=== PATIENT | male | born 1965 | race Caucasian/White ===

== ENCOUNTER 2017-02-06 12:06 | Emergency (ER) | payer SELFPAY ==
[~2017-02-06] VITALS: Ht 177.8 cm; Wt 102.3 kg
[~2017-02-06 12:06] MED LIST: ALBU8I INH; AZIT250T43 PO; LISI-357 PO; POTA-243 PO
[2017-02-06 12:07] VITALS: BP 177/100; PULSE 81; RESP 18; TEMP 98.5; O2SAT 97
--- NOTE | 2017-02-06 13:56 | PD ---
HPI Chief Complaint: Eye Problems/Injury Time Seen by Provider: 13:27 Travel History International Travel<30 days: No Contact w/Intl Traveler<30days: No Traveled to known affect area: No History of Present Illness HPI 51-year-old male presents to the emergency room for evaluation of right eye redness after injuring it just prior to arrival. Patient was standing about 3 feet up on a ladder when he lost his balance and fell to the right. States he may have hit his right eye on the counter on the way down. Reports mild pain. Denies foreign body sensation, changes in visual acuity, drainage, or tearing. Denies photophobia. Denies any other injuries. States at first he had some mild right shoulder and right ankle pain but this has subsided. He has not taken anything for symptoms. 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 PFSH Past Medical History Heart Rhythm Problems: No Cardiac Catheterization: No Cardiovascular Problems: Yes (HTN) High Cholesterol: No Congestive Heart Failure: No Diabetes: No Diminished Hearing: No Hypertension: Yes (off meds) Kidney Stones: Yes Past Surgical History Appendectomy: Yes Coronary Artery Bypass Graft: No Social History Alcohol Use: Yes (2-3 BEERS A DAY) Tobacco Use: Yes (1PK PER DAY) Substance Use: No Allergies-Medications (Allergen,Severity, Reaction): Coded Allergies: No Known Allergies (Verified , 08/05/14) Reported Meds & Prescriptions Reported Meds & Active Scripts Active Erythromycin Opth Oint 5 Mg/Gm Oint 1 Applic RIGHT EYE QID K-Dur (Potassium Chloride) 10 Meq Tabcr 20 Meq PO DAILY Lisinopril 5 mg (Lisinopril) 5 Mg Tab 1 Tab PO DAILY Ventolin Hfa (Albuterol Sulfate) 8 Gm Aero 2 Puff INH Q6 PRN * SHAKE WELL BEFORE USE * Azithromycin 250 Mg Tab 250 Mg PO DAILY 1 tablet daily for 4 days starting tomorrow 08/07/14 Review of Systems Except as stated in HPI: all other systems reviewed are Neg Physical Exam Narrative GENERAL: Well-nourished, well-developed male in no acute distress. Afebrile. Ambulatory. SKIN: Focused skin assessment warm/dry. HEAD: Normocephalic. EYES: PERRL, EOMI without pain. No photophobia. Moderate right eye injection. No scleral icterus. Right eye is 20/20. Left eye is 20/25. Fluorescein staining reveals no corneal abrasion, ulceration, or foreign body. Negative Oswald sign. NECK: Supple, trachea midline. No JVD or lymphadenopathy. CARDIOVASCULAR: Regular rate and rhythm without murmurs, gallops, or rubs. RESPIRATORY: Breath sounds equal bilaterally. No accessory muscle use. MSK: Full range of motion of right upper extremity. Full range motion ankle. Data Data Last Documented VS Vital Signs Date Time Temp Pulse Resp B/P (MAP) Pulse Ox O2 Delivery O2 Flow Rate FiO2 02/06/17 14:17 02/06/17 12:07 98.5 81 18 97 Room Air Orders Orders Ed Discharge Order (02/06/17 13:57) Mandatory Outpatient Referral (02/06/17 14:16) [facility] Medical Decision Making Medical Screen Exam Complete: Yes Emergency Medical Condition: Yes Medical Record Reviewed: Yes Differential Diagnosis Laceration, corneal abrasion, subconjunctival hemorrhage Narrative Course 51-year-old male presents to the emergency room for evaluation of a superficial laceration to his right eyeball that occurred just prior to arrival. Patient fell 3 feet off a ladder and struck his eye on a counter. He denies any significant pain. Physical exam reveals a flap over the right lateral conjunctiva. Negative Oswald sign. EOMI without pain. Visual acuity 20/20 in the affected eye. Fluorescein staining reveals no corneal involvement. I spoke to the table tender on-call, Dr. Lockett, who recommends erythromycin eye ointment and follow-up in her office this week for dilated eye exam. Patient will call today for an appointment. Mandatory outpatient referral placed. Patient was discharged with prescription and told to follow up as instructed or return for worsening symptoms. He understands and agrees to plan. Diagnosis Primary Impression: Laceration of right conjunctiva Qualified Codes: S05.31XA - Ocular laceration without prolapse or loss of intraocular tissue, right eye, initial encounter Referrals: Khushi Lockett MD Additional Instructions: Apply ointment as directed. Follow-up with table tender. Call for an appointment. Return to the emergency room for worsening symptoms. Scripts Erythromycin Opth Oint (Erythromycin Opth Oint) 5 Mg/Gm Oint 1 APPLIC RIGHT EYE QID for Infection, #1 TUBE 0 Refills Prov: Janae Ball DO 02/06/17 Disposition: 01 DISCHARGE HOME Condition: Stable Tesha Garcia Feb 06, 2017 13:56
[2017-02-06] MEDS ORDERED: ERYTOIN10 RIGHT EYE (13:57)
[2017-02-09] MEDS ORDERED: ERYTOIN10 RIGHT EYE (08:34)
[2017-02-09] MEDS ORDERED: LISI-519 PO (08:34)
== END 2017-02-06 14:19 | disposition home or self-care (01) ==
LOC: NEPK 12:06
DX: S05.31XA Ocular laceration without prolapse or loss of intraocular tissue, right eye, initial encounter (principal); I10 Essential (primary) hypertension; F17.200 Nicotine dependence, unspecified, uncomplicated; W11.XXXA Fall on and from ladder, initial encounter; Z87.442 Personal history of urinary calculi
CPT/HCPCS: 99283